=== PATIENT | female | born 1985 | race Native Hawaiian/Other Pacific Islander ===

== ENCOUNTER 2023-04-24 17:38 | Emergency (ER) | payer OTHER, SELFPAY ==
[2023-04-24 18:01] VITALS: BP 122/77; PULSE 72; RESP 16; TEMP 37.1; O2SAT 98; BMI 31.8
--- NOTE | 2023-04-24 18:26 | ED.GENADULT ---
HPI - General Adult General Date Seen: 04/24/23 Chief complaint: Urogenital Problems, Female Stated complaint: 15 wks , cramping Time Seen by Provider: 04/24/23 18:23 History of Present Illness HPI narrative: This is a 37-year-old female who is currently 15 weeks . She is a . She had 1 elective . She had 1 vaginal delivery and 1 delivery. She is currently about 15 weeks based on ultrasound. EDC is 10/26/2023. She receives her obstetric care through an paver installer at [facility], [place]. She does not know her doctor's name. She recalls that she had 2 ultrasounds. One of them was done in [place] and apparently was normal. She had another ultrasound that day center up to [place] to get a couple of weeks ago. She thinks it was normal. She got a message on her my chart but never checked it. She has been having abdominal pain and cramping for a week, getting worse. No vaginal bleeding or spotting. She has been experiencing lower bilateral and central pelvic cramping for about a week that is much worse today. It is associated with some mild nausea. She has also had multiple episodes of loose stools. She is not having any vaginal bleeding or any vaginal fluid leakage. No fever. She is having a lot of pelvic cramping. It is pretty continuous and does not really come in crampy waves. No clear trigger. She has a history of depression/anxiety. She is not on medications and feels that they are well controlled. She says her doctor told her she was ?premenopausal?. No other long-term medical conditions. No other surgeries aside from her . Related Data Allergies Allergy/AdvReac Type Severity Reaction Status Date / Time latex AdvReac Severe Anaphylaxis Verified 04/24/23 18:01 [facility] Social History Smoking Status: Never smoker Do you use any of these nicotine containing products: None Second hand tobacco smoke exposure: No How often do you have a drink containing alcohol: never How often do you have six or more drinks on one occasion: Never AUDIT-C Alcohol total score: 0 Non-prescribed substance use: denies use service: No Exam Narrative: Exam Narrative: Constitutional: Appears well-developed and well-nourished. Alert. Uncomfortable in grimacing due to pain. HENT: Head: Atraumatic. Nose: Nose normal. Mouth/Throat: Oral mucosa is clear and moist. no trismus. Pharynx normal. Tonsils symmetric. No tonsillar enlargement, erythema, or exudate. Eyes: Conjunctivae normal. EOM normal. Pupils equal, round, and reactive to light. No scleral icterus. Neck: Normal range of motion. Neck supple. No tracheal deviation present. Cardiovascular: Normal rate, regular rhythm. No gallop. No friction rub. No murmur heard. Pulmonary/Chest: Effort normal. No stridor. No respiratory distress. No wheezes. No rales. No rhonchi . No tenderness. Abdominal: Soft. Bowel sounds normal. No distension. Suprapubic fullness consistent with uterine fundus. She does have suprapubic and left lower quadrant> right lower quad tenderness. No upper tenderness. No CVA tenderness. No rebound. No guarding. Musculoskeletal: RUE: Normal range of motion. No tenderness. No deformity LUE: Normal range of motion. No tenderness. No deformity RLE: Normal range of motion. No edema. No tenderness. No deformity LLE: Normal range of motion. No edema. No tenderness. No deformity Neurological: Alert and oriented to person, place, and time. Normal strength. CN II-VII intact. No sensory deficit. GCS eye subscore is 4. GCS verbal subscore is 5. GCS motor subscore is 6. Normal coordination Skin: Skin is warm and dry. No rash noted. No pallor. Normal capillary refill. Psychiatric: Normal mood. Normal affect. Const: Vital Signs, click to edit/add: Vital Signs - 24 hr 04/24/23 18:01 04/24/23 20:26 Temperature 98.7 F Pulse Rate [Right Pulse Oximeter] 72 87 Respiratory Rate 16 18 Blood Pressure [Ri ght Upper Arm] 122/77 111/64 Pulse Oximetry 98 97 Oxygen Delivery Me thod Room Air Room Air Course Course ED Course: Recheck-feeling much better after fluids and meds. Looks much more comfortable now. Discussed ultrasound results being reassuring. Labs reassuring. Waiting on urine sample. She feels better. IV fluids done infusing. Vital Signs Vital signs: Initial Vital Signs Temperature 98.7 F 04/24/23 18:01 Temperature Source Temporal Artery Scan 04/24/23 18:01 Pulse Rate 72 03/14/24 18:01 Pulse Rhythm Regular 04/24/23 18:01 Pulse Strength 3+ Normal 04/24/23 18:01 Respiratory Rate 16 04/24/23 18:01 Blood Pressure 122/77 04/24/23 18:01 Blood Pressure Mean 92 04/24/23 18:01 Blood Pressure Position Supine 04/24/23 18:01 Pulse Oximetry 98 04/24/23 18:01 Oxygen Delivery Method Room Air 04/24/23 18:01 Vital Signs Temperature 98.7 F 04/24/23 18:01 Pulse Rate 72 04/24/23 18:01 Respiratory Rate 16 04/24/23 18:01 Blood Pressure 122/77 04/24/23 18:01 Pulse Oximetry 98 04/24/23 18:01 Oxygen Delivery Method Room Air 04/24/23 18:01 Temperature 98.7 F 04/24/23 18:01 Pulse Rate 87 04/24/23 20:26 Respiratory Rate 18 04/24/23 20:26 Blood Pressure 111/64 04/24/23 20:26 Pulse Oximetry 97 04/24/23 20:26 Oxygen Delivery Method Room Air 04/24/23 20:26 Medications Administered Medications: Discontinued Medications Generic Name Dose Route Start Last Admin Trade Name Freq PRN Reason Stop Dose Admin Fentanyl 50 mcg 04/24/23 18:40 04/24/23 18:55 Fentanyl 100 Mcg/2 Ml Inj IVP 04/24/23 18:41 50 mcg ONCE ONE Administration Sodium Chloride 1,000 mls @ 1,000 mls/hr 04/24/23 18:45 04/24/23 20:03 0.9 % Sodium Chloride 1000 Ml IV 04/24/23 19:44 Infused .Q1H GARY Infusion Ondansetron HCl 4 mg 04/24/23 18:40 04/24/23 18:55 Ondansetron 2 Mg/Ml Inj IVP 04/24/23 18:41 4 mg ONCE ONE Administration Medical Decision Making [facility] Narrative Medical decision making narrative: 37-year-old female who is a at 15 weeks gestation presenting to the ER today with bilateral and suprapubic pelvic cramping associated with diarrhea. She is not having any vaginal bleeding or discharge or fluid leakage. First concern is for possible complication. Quantitative hCG is appropriate for dates. Hemoglobin is normal. Rh type is positive. Pelvic ultrasound confirms a viable German IUP. No subchorionic hemorrhage. Normal heart rate. No evidence for any significant adnexal pathology. Small left corpus luteal cyst. Urinalysis shows a small amount of pyuria, hematuria, bacteria but also large squamous epithelial cells. I suspect this is a contaminated specimen. Lab will run urine culture. Also recommend follow-up with her OB Clinic to get a repeat clean-catch urine. Consider non gynecologic causes of pelvic and abdominal pain such as appendicitis, colitis, diverticulitis. She is not febrile and white blood cell count is normal. No significant right lower quadrant tenderness. At this point I have low suspicion for appendicitis. CT contraindicated given . MRI not available here in [facility]. At this point I have low enough suspicion for acute surgical abdomen that I do not think she needs to be transferred to another facility for emergent MR abdomen. She has also been having diarrhea today and says that her daughter has been having diarrhea lately. The patient's symptoms and exam could be consistent with a viral GI infection. There is no high fever, severe pain, bilious or bloody emesis, blood or mucous in the stool, severe abdominal pain, or other concerning signs for a bacterial infection. No recent travel or high risk exposure for baceraial pathogen. No recent antibiotics or risk factors for C. diff. I don't see any evidence for appendicitis, bowel obstruction, abscess, bowel perforation, or other surgical emergency. Labs show no concerning electrolyte disturbance or renal failure. After meds given the patient is feeling better. At this point, the patient is non-septic appearing and well hydrated.I think the patient can be managed as an outpatient. We have discussed oral rehydration strategies. They understand and can perform the needed interventions at home. I have provided a prescription for antiemetics to facilitate oral hydration (Zofran-Instymeds). We have discussed the signs and symptoms of worsening dehydration. They understand the need for immediate reevaluation if any of these symptoms occur. They are also directed to obtain close outpatient follow up with their Ob within 2-3 days. Lab Data Labs: Lab Results 04/24/23 04/24/23 Range/Units 18:50 19:57 WBC 9.45 (4.50-11.00) K/uL RBC 4.34 (4.00-5.20) m/uL Hgb 12.9 (12.0-16.0) gm/dL Hct 38.6 (33.0-51.0) % MCV 89 (80-100) fL MCH 30 (26-34) pg MCHC 33 (32-36) gm/dL RDW Coeff of Silvio 12.4 (11.5-15.5) % Plt Count 247 (140-440) K/uL Neut % (Auto) 92.7 H (42.0-72.0) % Lymph % (Auto) 3.8 L (20-44) % [place] % (Auto) 2.5 (0.0-11.0) % Eos % (Auto) 0.8 (0.0-7.0) % Baso % (Auto) 0.1 (0.0-3.0) % Neut # (Auto) 8.80 H (1.7-7.0) K/uL Lymph # (Auto) 0.40 L (0.90-2.90) K/uL [place] # (Auto) 0.20 (0.00-0.90) K/UL Eos # (Auto) 0.08 (0.00-0.50) K/uL Baso # (Auto) 0.01 (0.00-0.30) K/uL Abs Immat Gran (auto) 0.01 (0.00-0.30) K/uL Imm/Tot Granulo (auto) 0.1 % Sodium 132 L (135-149) mmol/L Potassium 3.5 L (3.6-5.1) mmol/L Chloride 104 (96-114) mmol/L Carbon Dioxide 20 (20-32) mmol/L Anion Gap 8 (7-15) mEq/L BUN 12 (5-24) mg/dL Creatinine 0.6 (0.5-1.5) mg/dL Estimated Creat Clear 108.70 Estimated GFR 117 ml/min Glucose 119 H (60-115) mg/dL Calcium 9.0 (8.4-10.6) mg/dL HCG, Quant 31102.00 mIU/mL Urine Color Yellow (Yellow) Urine Appearance Slightly Cloudy A (Clear) Urine pH 6.0 (5.0-8.5) Ur Specific [place] 1.025 (1.000-1.030) Urine Protein 2+ A (Negative) Urine Glucose (UA) Negative (Negative) Urine Ketones 1+ A (Negative) Urine Blood 2+ A (Negative) Urine Nitrite Negative (Negative) Urine Bilirubin Negative (Negative) Urine Urobilinogen 0.2 (0.2-1.0) Ur Leukocyte Esterase 1+ A (Negative) Urine RBC 5-10 A (0-2) Urine WBC 5-10 A (0-5) Ur Squamous Epith Cells Many A (None-Few) Urine Bacteria Many A (None) Blood Type O Positive Antibody Screen NEGATIVE Imaging Data US pelvis: Attestation: I have reviewed the pertinent imaging results. Radiologist's impression: IMPRESSION: 1. Single living intrauterine gestation in variable position with heart rate 155 beats per minute. 2. Anterior placenta without evidence of previa or abruption. The cervix is closed. 3. Corpus luteal cyst in the maternal left ovary. Discharge Plan Discharge Clinical Impression: Pelvic pain, Diarrhea, Nausea Patient Disposition: Home, Self-Care Condition: Stable Instructions: Acute Diarrhea (ED), Pelvic Pain in Women (ED) Additional Instructions: As we discussed, use Zofran to help treat nausea and prevent vomiting. Drink plenty of fluids. Try to eat healthy diet. Your potassium is mildly low because of your diarrhea. Eat potassium rich foods such as bananas, avocados, tomatoes to help supplement your potassium for the next couple of days. Recheck with your OB doctor in [place] within the next 1-3 days. Asked them to repeat a urine sample to make sure it is still healthy. Return to the ER right away if you have any worsening symptoms such as uncontrolled diarrhea, uncontrolled vomiting, dehydration, high fever, worsening pain, or if you have any vaginal bleeding or fluid leakage. Follow Up/Referrals: Provider,Not a Local [Primary Care Provider] - Stand Alone Forms: [employer] Info Instructions
--- NOTE | 2023-04-24 18:39 | US_ITS ---
Patient: FORTINO PATEL Facility:?[facility] Patient ID:?[id number] Site Patient ID:?[id number]. Site :?[id number] Study:?US-OB Pelvis LIMITED-04/24/2023 7:21:16 PM Ordering Physician:MATHEW GALARZA Final Report: INDICATION: Pelvic cramping, 15 weeks . COMPARISON: None. TECHNIQUE: Real time quick scale imaging of the fetus was performed as well as color Doppler analysis of the umbilical vessels. FINDINGS: Sonographic imaging demonstrates a single living intrauterine gestation. The fetus has a regular cardiac rate of 155 beats per minute. The fetus has a variable orientation. The placenta lies anteriorly without evidence of placenta previa or abruption. Amniotic fluid volume appears normal with deepest pocket measuring 3.5 cm. The cervix is closed and measures 4.2 cm in length. The maternal right ovary measures 2.7 x 1.3 x 2.2 cm and the left ovary measures 5.6 x 1.7 x 2.8 cm. There is a 1.7 x 1.4 x 2.1 cm corpus luteal cyst in the left ovary. The ovaries demonstrate normal blood flow. IMPRESSION: 1. Single living intrauterine gestation in variable position with heart rate 155 beats per minute. 2. Anterior placenta without evidence of previa or abruption. The cervix is closed. 3. Corpus luteal cyst in the maternal left ovary. Dictated by Carrie Ryan MD @ 04/24/2023 7:32:32 PM Signed by:?Carrie Ryan MD @04/24/2023 7:32:32 PM (Electronic Signature)
[2023-04-24] MEDS: ONDANSETRON 2 MG/ML inj 4 MG IVP (18:55)
[2023-04-24] MEDS: 0.9 % SODIUM CHLORIDE 1000 ml 1,000 ML IV (18:55)
[2023-04-24] MEDS: fentaNYL 100 MCG/2 ML inj 50 MCG IVP (18:55)
[2023-04-24 19:01] LABS: Basophils Absolute Auto 0.01 K/uL (0.00-0.30); Basophils Percent Auto 0.1 % (0.0-3.0); Eosinophils Absolute Auto 0.08 K/uL (0.00-0.50); Eosinophils Percent Auto 0.8 % (0.0-7.0); Hematocrit 38.6 % (33.0-51.0); Hemoglobin* 12.9 gm/dL (12.0-16.0); Immature Granulocytes Abs Auto 0.01 K/uL (0.00-0.30); Immature Granulocytes Pct Auto 0.1 %; Lymphocytes Percent Auto 3.8 % (20-44); Mean Corpuscular HGB Conc 33 gm/dL (32-36); Mean Corpuscular Hemoglobin 30 pg (26-34); Mean Corpuscular Volume 89 fL (80-100); Monocytes Percent Auto 2.5 % (0.0-11.0); Neutrophils Percent Auto 92.7 % (42.0-72.0); Platelet Count* 247 K/uL (140-440); RDW Coefficient of Variation % 12.4 % (11.5-15.5); Red Blood Count 4.34 m/uL (4.00-5.20); White Blood Count* 9.45 K/uL (4.50-11.00)
[2023-04-24 19:05] LABS: Slide Review Reflex No
[2023-04-24 19:15] LABS: Chloride* 104 mmol/L (96-114)
[2023-04-24 19:16] LABS: Potassium* 3.5 mmol/L (3.6-5.1); Sodium* 132 mmol/L (135-149)
[2023-04-24 19:18] LABS: Creatinine* 0.6 mg/dL (0.5-1.5); Estimated Glomerular Filt Rate 117 ml/min
[2023-04-24 19:19] LABS: Anion Gap 8 mEq/L (7-15); Blood Urea Nitrogen* 12 mg/dL (5-24); Carbon Dioxide* 20 mmol/L (20-32); Glucose* 119 mg/dL (60-115)
[2023-04-24 20:02] LABS: Appearance Urine Slightly Cloudy (Clear); Bilirubin Urine Negative (Negative); Blood Urine 2+ (Negative); Color Urine Yellow (Yellow); Glucose Urine Negative (Negative); Ketones Urine 1+ (Negative); Leukocyte Esterase Urine 1+ (Negative); Nitrite Urine Negative (Negative); Protein Urine 2+ (Negative); Specific Gravity Urine 1.025 (1.000-1.030); Urobilinogen Urine 0.2 (0.2-1.0)
[2023-04-24 20:24] LABS: Bacteria Urine Many; Squamous Epithelial Cell Urine Many (None-Few)
[2023-04-24 20:26] VITALS: BP 111/64; PULSE 87; RESP 18; O2SAT 97
[2023-04-24 21:03] VITALS: BP 114/65; PULSE 80; RESP 18; TEMP 37.1; O2SAT 98
== END 2023-04-24 21:05 | disposition home or self-care (01) ==
PROVIDERS: Emergency Provider Emergency Medicine
DX: R10.2 Pelvic and perineal pain (principal); R11.0 Nausea; R19.7 Diarrhea, unspecified; Z33.1 Pregnant state, incidental
CPT/HCPCS: 36415; 76815; 80048; 81001; 84702; 85025; 86850; 86900; 86901; 87086; 93976; 96361; 96374; 96375; 99283; 99284; J2405; J3010; J7030